=== PATIENT | female | born 1985 | race Caucasian/White ===

== ENCOUNTER → 2023-03-14 | Outpatient (CLI) | payer OTHER, SELFPAY ==
--- NOTE | 2023-03-14 07:49 | BI_ITS ---
MAMMOGRAPHY - BILATERAL SCREENING REASON FOR EXAM: Female, 38 years old. Routine annual screening examination. PERTINENT HISTORY: Non-contributory. TECHNIQUE: Digital bilateral breast kishan (3D mammographic acquisition) in the CC and MLO projections. 2-D mediolateral oblique (MLO) and craniocaudad (CC) views of both breasts were obtained. CAD: Full Field Digital Mammography with Computer Added Detection was performed. COMPARISON: None. Baseline examination. FINDINGS: Breast Composition: The breasts are extremely dense, which lowers the sensitivity of mammography. There are no dominant masses or suspicious calcifications. No other significant abnormalities are identified. BI/SCRN MAMM (CAD)W/KISHAN BILAT IMPRESSION: Negative screening mammogram. Yearly followup mammogram recommended. (A) ASSESSMENT CATEGORY: BIRADS Category 1: Negative. A letter regarding these results will be sent to the patient by the facility within 30 days. Approximately 10% of breast cancers are not detected by mammography. A normal mammogram should not delay biopsy of a clinically suspicious abnormality. [id number] Electronically Signed: Cb Corona MD at 8:57 EDT ,
== END | disposition home or self-care (01) ==
LOC: OPBI 07:47
PROVIDERS: PCP Family Medicine; Referring Provider Student in an Organized Health Care Education/Training Program; Visit Provider Student in an Organized Health Care Education/Training Program
DX: Z12.31 Encounter for screening mammogram for malignant neoplasm of breast (principal)
CPT/HCPCS: 77063; 77067

== ENCOUNTER 2023-10-11 11:28 | Day surgery (SDC) | payer OTHER, SELFPAY ==
--- NOTE | 2023-10-10 09:14 | HP.PCM.OB_ITS ---
History and Physical Date of Admission: 10/11/23 Pre-Op History and Physical ? HPI: The patient is a 38 year old female presenting for pre-operative visit. She is scheduled for Hysteroscopy D&C w/ myomectomy and Endometrial ablation and lap salpingectomy, for AUB, Submucosal fibroid , desires sterlization on 10/11/23. Procedure discussed along with risks, benefits and complications. Other alternatives discussed for management. Consent form signed? Yes. ? ? PAST MEDICAL HISTORY PAST MEDICAL HISTORY Diagnosis Date ? NEGATIVE MEDICAL HISTORY ? ? ? PAST SURGICAL HISTORY PAST SURGICAL HISTORY Procedure Laterality Date ? NONE ? CURRENT MEDICATIONS Current Outpatient Medications Medication Sig Dispense Refill ? norethindrone (AYGESTIN) 5 mg tablet Take 1 tablet by mouth two times a day. Take one tablet twice daily until bleeding stop then take daily. 60 tablet 1 ? No current facility-administered medications for this visit. ? ? ALLERGIES: Amoxicillin ? PERSONAL HISTORY: SOCIAL HISTORY Social History ? Tobacco Use ? Smoking status: Never ? Smokeless tobacco: Never Vaping Use ? Vaping Use: Never used Substance Use Topics ? Alcohol use: Not Currently ? Drug use: Never ? FAMILY HISTORY: FAMILY HISTORY No family history on file. ? REVIEW OF SYMPTOMS: negative except as noted above PHYSICAL EXAMINATION: ? VITALS: Blood pressure 104/68, weight 132 lb (59.9 kg), last menstrual period 08/08/2023. ? GENERAL: The patient is well nourished, well hydrated in no acute distress. , The patient is oriented to time, place, and person. NECK: full range of motion ? ? IMPRESSION: 38 yo female with fibroid uterus, with AUB and desires sterilization ? PLAN: Hysteroscopy, D&C, Myomectomy with symphion. If cavity not breached then Endometrial ablation. Laparoscopic Bilateral salpingectomy. ? Pt has been counseled on risks/benefits and alternatives of surgery including but not limited to anesthesia, bleeding, infection, injury to pelvic structures including bowel, bladder, ureters and vessels. Pt wishes to proceed with surgery at this time. Pt understands if cavity breached during myomectomy a blation will not be performed. ? Pre and post op instructions reviewed Consent signed. ? I have reviewed and updated past medical and surgical history, medications and allergies Hafsa Blackmon MD
[2023-10-11] VITALS (8 sets, daily range): BP systolic 90–102; BP diastolic 61–71; PULSE 71–87; RESP 16–18; TEMP 36.1–37.1; O2SAT 95–100; BMI 22.4
[2023-10-11] MEDS: Lactated Ringers 1,000 ML 15 ML IV (12:03)
[2023-10-11 12:07] LABS: Hematocrit 43.2 % (37-47); Hemoglobin 13.9 g/dL (12.0-15.0); Mean Corp Hgb Conc 32.2 g/dL (32-36); Mean Corpuscular Hgb 30.5 pg (27.0-32.0); Mean Corpuscular Volume 94.7 fL (81-99); Mean Platelet Vol. 9.5 fl (6.2-12.0); Platelet Count 287 K/mm3 (150-450); RBC Distribution Width SD 45.1 fl (35.1-43.9); Red Blood Count 4.56 M/mm3 (4.2-5.4); White Blood Count 7.5 K/mm3 (4.4-11.0)
--- OUTSIDE RECORDS SUMMARY | 2023-10-11 12:08 | XMS RPT_ITS | CCD ---
Author Name Unknown Address [address] [place] [address] Organization [facility] Care Team Providers Care Equipment Mechanic Specialist Name Role Phone Cristóbal Schmidt DO Primary Care Provider SIGRID KEYES Attending Unavailable CRISTÓBAL SCHMIDT Primary Care Unavailable Cristóbal Schmidt DO Primary Care Provider GARO, ELIZABETH Referring Unavailable FRACASSO, CRISTÓBAL E Primary Care Unavailable GARO, ELIZABETH Referring Unavailable FRACASSO, CRISTÓBAL E Primary Care Unavailable GARO, ELIZABETH Attending Unavailable FRACASSO, CRISTÓBAL E Primary Care Unavailable FRACASSO, CRISTÓBAL E Primary Care Unavailable FRACASSO, CRISTÓBAL E Primary Care Unavailable FRACASSO, CRISTÓBAL E Primary Care Unavailable DUNCANT FAVIO BARKER Attending Unavail able FRACASSO, CRISTÓBAL E Primary Care Unavailable FRACASSO, CRISTÓBAL E Primary Care Unavailable NEMICHAELT FAVIO BARKER Attending Unavail able FRACASSO, CRISTÓBAL E Primary Care Unavailable GARO, ELIZABETH Attending Unavailable GARO, ELIZABETH Referring Unavailable GARO, ELIZABETH Attending Unavailable ANUJSSO, CRISTÓBAL E Primary Care Unavailable Allergies Allergy Classification Reported Allergen(s) Allergy Type Date of Onset Reaction(s) Facility (8 sources) Amoxicillin; Translations: [AMOXICILLIN] Drug Allergy 02-20-2018 Rash [facility] Medications Current Medications Medication Drug Class(es) Dates Sig (Normalized) Sig (Original) erythromycin 0.005 mg/mg ophthalmic ointment (1 source) Macrolide, Macrolide Antimicrobial Start: 03-09-2023 End: 03-16-2023 erythromycin (ROMYCIN) 5 mg/gram (0.5 %) ophthalmic ointment Indications: Infection Use 1 application in the right eye four times daily for 7 days. 3.5 g 0 03/09/2023 03/16/2023 Active Completed/Discontinued Medications Medication Drug Class(es) Dates Sig (Normalized) Sig (Original) Ethinyl Estradiol / norgestimate (5 sources) Progestin, Estrogen Start: 11-22-2017 End: 07-25-2023 take 1 tablet by mouth once daily norgestimate 0.25 mg-ethinyl estradiol 35 mcg (SPRINTEC, ORTHO-CYCLEN) 0.25-35 mg-mcg per tablet Take 1 tablet by mouth once daily. 0 11/22/2017 07/25/2023 Discontinued (Other) Problems Active Problems Problem Classification Problem Date Documented Date Episodic/Chronic Contraceptive and procreative management (1 source) Patient encounter status; Translations: [Encounter for removal of intrauterine contraceptive device] 08-20-2023 Episodic Genitourinary symptoms and ill-defined conditions (3 sources) Dysuria; Translations: [Dysuria] Onset: 10-25-2022 Episodic Menstrual disorders (3 sources) Irregular periods; Translations: [Irregular menstruation, unspecified] Onset: 07-31-2023 07-25-2023 Chronic Other infections; including parasitic (1 source) Disorder due to infection; Translations: [Unspecified infectious disease] Episodic Other skin disorders (1 source) Eruption; Translations: [Rash and other nonspecific skin eruption] Episodic Viral infection (2 sources) Herpesviral infection, unspecified; Translations: [Herpesviral infection, unspecified] Onset: 10-25-2022 Episodic Past or Other Problems Problem Classification Problem Date Documented Da te Episodic/Chronic Abdominal pain (4 sources) Epigastric pain; Translations: [Epigastric pain] Onset: 12-01-2007 12-01-2007 Episodic Results Test Name Value Interpretation Reference Range Facil ity Vital Signs Date Time Vital Sign Value Performing Clinician Slime kelly 08-20-2023 09:50-0500 Body weight 58.51 kg Elizabeth Wyman APRN.CNP Work Phone: [facility] 08-20-2023 09:50-0500 Diastolic blood pressure 78 mm[Hg] Elizabeth Wyman APRN.CNP Work Phone: [facility] 08-20-2023 09:50-0500 Systolic blood pressure 110 mm[Hg] Elizabeth Wyman APRN.FIRE SAFETY INSPECTOR Work Phone: [facility] 07-25-2023 11:24-0400 Body weight 57.15 kg Elizabeth [place] J2EE SOFTWARE ENGINEER.FIRE SAFETY INSPECTOR Work Phone: [facility] 07-25-2023 11:24-0400 Diastolic blood pressure 60 mm[Hg] Elizabeth [place] J2EE SOFTWARE ENGINEER.FIRE SAFETY INSPECTOR Work Phone: [facility] 07-25-2023 11:24-0400 Systolic blood pressure 98 mm[Hg] Elizabeth [place] J2EE SOFTWARE ENGINEER.FIRE SAFETY INSPECTOR Work Phone: [facility] 03-09-2023 09:11-0400 Body temperature 97 [degF] Fifi Ortiz APRN.FIRE SAFETY INSPECTOR Work Phone: [facility] 03-09-2023 09:11-0400 Body weight 56.97 kg Fifi Ortiz APRN.FIRE SAFETY INSPECTOR Work Phone: [facility] 03-09-2023 09:11-0400 Diastolic blood pressure 62 mm[Hg] Fifi Ortiz APRN.FIRE SAFETY INSPECTOR Work Phone: [facility] 03-09-2023 09:11-0400 Heart rate 92 /min Fifi Ortiz APRN.FIRE SAFETY INSPECTOR Work Phone: [facility] 03-09-2023 09:11-0400 Respiratory rate 18 /min Fifi Ortiz APRN.FIRE SAFETY INSPECTOR Work Phone: [facility] 03-09-2023 09:11-0400 SaO2% (BldA) [Mass fraction] 100 % Fifi Ortiz APRN.FIRE SAFETY INSPECTOR Work Phone: [facility] 03-09-2023 09:11-0400 Systolic blood pressure 98 mm[Hg] Fifi Ortiz APRN.FIRE SAFETY INSPECTOR Work Phone: [facility] 02-12-2023 08:02-0400 Body temperature 98.2 [degF] Wendy Baez J2EE SOFTWARE ENGINEER.FIRE SAFETY INSPECTOR Work Phone: [facility] 02-12-2023 08:02-0400 Body weight 57.34 kg Wendy Nestor J2EE SOFTWARE ENGINEER.FIRE SAFETY INSPECTOR Work Phone: [facility] 02-12-2023 08:02-0400 Diastolic blood pressure 68 mm[Hg] Wendy Nestor J2EE SOFTWARE ENGINEER.FIRE SAFETY INSPECTOR Work Phone: [facility] 02-12-2023 08:02-0400 Heart rate 89 /min Wendy Nestor J2EE SOFTWARE ENGINEER.FIRE SAFETY INSPECTOR Work Phone: [facility] 02-12-2023 08:02-0400 Respiratory rate 18 /min Wendy Nestor J2EE SOFTWARE ENGINEER.FIRE SAFETY INSPECTOR Work Phone: [facility] 02-12-2023 08:02-0400 SaO2% (BldA) [Mass fraction] 100 % Wendy Nesotr J2EE SOFTWARE ENGINEER.FIRE SAFETY INSPECTOR Work Phone: [facility] 02-12-2023 08:02-0400 Systolic blood pressure 122 mm[Hg] Wendy Nestor J2EE SOFTWARE ENGINEER.FIRE SAFETY INSPECTOR Work Phone: [facility] 08-10-2022 12:56-0500 Body temperature 98.29 [degF] Jeana Athy PA-C Work Phone: [facility] 08-10-2022 12:56-0500 Body weight 58.88 kg Jeana Athy PA-C Work Phone: [facility] 08-10-2022 12:56-0500 Diastolic blood pressure 78 mm[Hg] Jeana Athy PA-C Work Phone: [facility] 08-10-2022 12:56-0500 Heart rate 91 /min Jeana Athy PA-C Work Phone: [facility] 08-10-2022 12:56-0500 Respiratory rate 18 /min Jeana Athy PA-C Work Phone: [facility] 08-10-2022 12:56-0500 SaO2% (BldA) [Mass fraction] 96 % Jeana Athy PA-C Work Phone: [facility] 08-10-2022 12:56-0500 Systolic blood pressure 110 mm[Hg] Jeana Athy PA-C Work Phone: [facility] Encounters Encounter Date Encounter Type Care Provider Facility Start: 10-04-2023 End: 10-04-2023 ambulatory FAVIO FAINALUIZAAdrian LUCERO Facility:[facility] Start: 10-02-2023 End: 10-02-2023 ambulatory CRISTÓBAL CONROYELIZABETHCHERYLE Facility:[facility] Start: 08-20-2023 End: 08-20-2023 ambulatory CRISTÓBAL SCHMIDT Facility:[facility] Start: 08-20-2023 End: 08-20-2023 Patient encounter procedure Elizabeth Garo J2EE SOFTWARE ENGINEER.FIRE SAFETY INSPECTOR Work Phone: OB/Gynecology Procedures Date Procedure Procedure Detail Performing Clinician Start: 07-31-2023 Us transvaginal Elizabeth analf J2EE SOFTWARE ENGINEER.FIRE SAFETY INSPECTOR Work Phone: Start: 08-10-2022 Urnls dip stick/tabl et rgnt auto w/o microscopy Jeana Mujica PA-C Work Phone: Plan of Treatment Date Care Activity Detail Author Start: 03-19-2024 Mammography Mammogram Screening [facility] Start: 07-25-2023 End: 10-24-2023 Iron and Iron binding capacity panel - Serum or Plasma [facility] Work Phone: Payers Date Payer Category Payer Unknown [facility] FLAVIA [employer] INSURED [id number] 2021-Present [phone] [address] [place] [address] PPO [id number] 2021 Unknown [id number] Social History Date Type Detail Facility Start: 08-10-2022 Tobacco smoking stat us NHIS Never smoked tobacco [facility] Start: 08-10-2022 Tobacco use and exposure Smoke less tobacco non-user [facility] Start: 1985 Sex Assigned At Not on file [facility] Start: 07-25-2023 End: 08-13-2023 Alcohol intake Ex-drinker (finding) [facility] Start: 07-25-2023 End: 08-13-2023 History of Social function [facility] Start: 07-25-2023 End: 08-13-2023 Tobacco use panel [facility] National Score (1-10 0), lower number is lower risk 75 [facility] Clinical Notes 12-01-2007 to 10-02-2023 Elizabeth Wyman APRN.FIRE SAFETY INSPECTOR - 08/20/2023 9:35 AM Anna Avila RDMS - 07/31/2023 11:30 AM Elizabeth Riddle APRN.QUEENIE - 07/25/2023 11:23 AM EDTFifi Ortiz APRN.FIRE SAFETY INSPECTOR - 03/09/2023 9:20 AM EDT Note Date & Type Note Facility 10-02-2023 Note HNO ID: [id number] Author: Favio De Luna MD Service: ? Author Type: Physician Type: Progress Notes Filed: 10/02/2023 9:07 AM Note Text: Roopa Hutchinson is a 38 year old female who presents for discussion regarding surgical intervention for AUB. Pt reports Irregular bleeding started a few months ago- bleeding twice per month heavy. Pt tried ocps many years ago- didn't like how she felt. Recently tried IUD- had it taken out just a couple of weeks later due to pain and bloating. Pt now on Aygestin- doing well - having spotting. Pt has one child age 14, does not desire future children. Pt offers no other concerns. 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 Social History Tobacco Use Smoking status: Never Smokeless tobacco: Never Vaping Use Vaping Use: Never used Substance Use Topics Alcohol use: Not Currently Drug use: Never Current Outpatient Medications Medication Sig norethindrone (AYGESTIN) 5 mg tablet Take 1 tablet by mouth once daily. No current facility-administered medications for this visit. Allergies As of Date: 10/02/2023 Allergen Noted Reaction AMOXICILLIN 02/20/2018 Rash Fully Assessed 08/20/2023 REVIEW OF SYSTEMS Abdomen: no pain Expanded ROS: GENERAL: Negative for fever Allergies and current medication updated:Yes EXAM: BP 118/64 Wt 134 lb (60.8kg) LMP 08/08/2023 GENERAL: pleasant, female in no apparent distress HEENT: Normocephalic and atraumatic NECK: full range of motion DERMATOLOGY: Normal and without lesions NEURO: alert and oriented x3,exam grossly non-focal EXTREMITIES: normal ASSESSMENT AND PLAN: Encounter Diagnosis ICD-10-CM 1. Abnormal uterine bleeding (AUB) N93.9 2. Intramural and submucous leiomyoma of uterus D25.1 D25.0 3. Sterilization consult Z30.09 4. Discussed options with patient- reviewed ultrasound report and labs- possible submucosal fibroid - small. Discussed hysteroscopy, DANDC with possible myomectomy- so long as cavity not breached can perform endometrial ablation if desired. Salpingectomy reviewed at time of procedure. 5. Discussed increasing Aygestin to BID to TID until bleeding stops then back to once daily. Medical Decision Making: Problems: Low: Acute, uncomplicated illness or injury Data: Unique test result(s) reviewed: 3+ Risk: Moderate: Drug management and Decision on minor surgery w/ risk factors Medical Decision Making Level: 4 - Moderate Favio Dubois MD [facility] 08-20-2023 Note HNO ID: [id number] Author: Elizabeth yWman APRN.FIRE SAFETY INSPECTOR Service: ? Author Type: Nurse Practitioner Type: Progress Notes Filed: 08/20/2023 12:40 PM Note Text: Roopa presents for removal of IUD due to pain, bloating. UNIVERSAL PROTOCOL / SAFETY CHECKLIST Procedure to be Performed: Mirena removal Sign In: A Moment of CARE was completed. Personnel directly involved with the procedure wore the appropriate PPE (Personal Protective Equipment). Patient/Surrogate Stated/Verified: PATIENT VERIFIED(optional for EMERGENT procedures): Patient name, Date of , Relevant allergies, and The intended procedure Time Out Communication: Intended patient and procedure match the source documents. Consent documented and matches the intended procedure. Sign Out: SIGN OUT (optional for EMERGENT procedures): No specimen collected. No instruments, equipment or retained foreign bodies applicable. Post-procedure follow-up management communicated and Plan of Care Visit completed when applicable. Dorota Dellafave [employer] PROCEDURE: Speculum placed in vagina, IUD string visualized and grasped with ring forceps. ASSESSMENT/PLAN: IUD removed without difficulty, intact, and patient tolerated procedure well. Aygestin 5 mg daily until consult appt Elizabeth Wyman APRN.CNP [facility] 08-20-2023 History of Presen t illness Narrative Roopa presents for removal of IUD due to pain, bloating. UNIVERSAL PROTOCOL / SAFETY CHECKLIST Procedure to be Performed: Mirena removal Sign In: A Moment of CARE was completed. Personnel directly involved with the procedure wore the appropriate PPE (Personal Protective Equipment). Patient/Surrogate Stated/Verified: PATIENT VERIFIED(optional for EMERGENT procedures): Patient name, Date of , Relevant allergies, and The intended procedure Time Out Communication: Intended patient and procedure match the source documents. Consent documented and matches the intended procedure. Sign Out: SIGN OUT (optional for EMERGENT procedures): No specimen collected. No instruments, equipment or retained foreign bodies applicable. Post-procedure follow-up management communicated and Plan of Care Visit completed when applicable. Dorota Dellafave [employer] PROCEDURE: Speculum placed in vagina, IUD string visualized and grasped with ring forceps. ASSESSMENT/PLAN: IUD removed without difficulty, intact, and patient tolerated procedure well. Aygestin 5 mg daily until consult appt Elizabeth Wyman APRN.QUEENIE documented in this encounter [facility] 08-13-2023 Note HNO ID: [id number] Author: Elizabeth Wyman APRN.CNP Service: ? Author Type: Nurse Practitioner Type: Progress Notes Filed: 08/13/2023 10:01 AM Note Text: Plant Technician offered: Patient declines. Roopa presents today for IUD insertion for dysmenorrhea. Patient's last menstrual period was 08/08/2023 (approximate). GC/chlamydia: Not done: no risk factors and/or patient declines screening test: negative Side effects including irregular bleeding were discussed with the patient. The patient understands that it should be removed in 8 years or sooner if the patient desires a . IUD source: office provided IUD lot #: [id number] Exp date: 05/2025 UNIVERSAL PROTOCOL / SAFETY CHECKLIST Procedure to be Performed: Mirena IUD Insertion Sign In: A Moment of CARE was completed. Personnel directly involved with the procedure wore the appropriate PPE (Personal Protective Equipment). Patient/Surrogate Stated/Verified: PATIENT VERIFIED(optional for EMERGENT procedures): Patient name, Date of , Relevant allergies, and The intended procedure Time Out Communication: Intended patient and procedure match the source documents. Consent documented and matches the intended procedure. Sign Out: SIGN OUT (optional for EMERGENT procedures): No specimen collected. All instruments, equipment, possible retained foreign bodies accounted for. Post-procedure follow-up management communicated and Plan of Care Visit completed when applicable. The cervix was prepped with betadine. The uterus sounded to 8 cm and the uterus is Anteverted.. Using sterile technique, the Mirena IUD was inserted without difficulty and the string was cut to 1cm from the external os of the cervix. Patient tolerated procedure well. PLAN: Patient was advised to observe for signs and symptoms of infection including but not limited to fever, malodorous vaginal discharge and/or pain. The patient was told to check the string monthly for accurate placement. Bleeding expectations were reviewed. Follow up for next annual exam or sooner as needed. Elizabeth Wyman APRN.[facility] 07-31-2023 Note HNO ID: [id number] Author: Anna Cooper RDMS Service: ? Author Type: Brazer Helper Induction Type: Progress Notes Filed: 07/31/2023 4:17 PM Note Text: Radiology Service Progress Note PATIENT NAME: Roopa Hutchinson DATE OF SERVICE: July 31, 2023 TIME: 4:17 PM PATIENT IDENTITY VERIFICATION COMPLETED USING TWO (2) IDENTIFIERS: Name and Date of confirmed by patient verbally. FALL SCREENING: Has the patient had 2 falls in the last year or 1 fall with injury or currently using an Ambulatory Assistive Device (Walker, Cane, Wheelchair, Crutches, etc.)? No PATIENT GENDER DATA: Female. status: : No status: NO. PATIENT RELEVANT IMPLANT DATA REVIEWED: Not Applicable RADIOLOGY DEPARTMENT: Ultrasound PERIPHERAL IV DATA: Not applicable SIGNED BY: Anna Cooper RDMS RVT July 31, 2023 4:17 PM [facility] 07-31-2023 History of Presen t illness Narrative Radiology Service Progress Note PATIENT NAME: Roopa Hutchinson DATE OF SERVICE: July 31, 2023 TIME: 4:17 PM PATIENT IDENTITY VERIFICATION COMPLETED USING TWO (2) IDENTIFIERS: Name and Date of confirmed by patient verbally. FALL SCREENING: Has the patient had 2 falls in the last year or 1 fall with injury or currently using an Ambulatory Assistive Device (Walker, Cane, Wheelchair, Crutches, etc.)? No PATIENT GENDER DATA: Female. status: : No status: NO. PATIENT RELEVANT IMPLANT DATA REVIEWED: Not Applicable RADIOLOGY DEPARTMENT: Ultrasound PERIPHERAL IV DATA: Not applicable SIGNED BY: Anna Cooper RDMS RVT July 31, 2023 4:17 PM documented in this encounter [facility] 07-25-2023 Note HNO ID: [id number] Author: Elizabeth Wyman APRN.FIRE SAFETY INSPECTOR Service: ? Author Type: Nurse Practitioner Type: Progress Notes Filed: 07/25/2023 11:59 AM Note Text: Roopa Hutchinson is a 38 year old female who presents for problem visit irregular bleeding for 3 months. HPI: pt states that she is having a period about every 2 weeks with flow lasting 5, with heavy bleeding. This started about 3 months ago. Otherwise periods were pretty regular prior to this. Changing a pad every 2 hours on heavy day. Lots of cramping, takes Ibuprofen in needed. 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 No pertinent family history. Social History Tobacco Use Smoking status: Never Smokeless tobacco: Never Vaping Use Vaping Use: Never used Substance Use Topics Alcohol use: Not Currently Drug use: Never Current Outpatient Medications Medication Sig predniSONE (DELTASONE) 10 mg tablet Take 4 tabs po x 3 days, then 3 tabs x 3 days, then 2 tabs x 3 days, then 1 tab x 3 days. (Patient not taking: Reported on 03/09/2023) norgestimate 0.25 mg-ethinyl estradiol 35 mcg (SPRINTEC, ORTHO-CYCLEN) 0.25-35 mg-mcg per tablet Take 1 tablet by mouth once daily. (Patient not taking: Reported on 08/10/2022) fluticasone propionate (FLONASE NASAL) Use in the nose. (Patient not taking: Reported on 08/10/2022) No current facility-administered medications for this visit. Allergies As of Date: 07/25/2023 Allergen Noted Reaction AMOXICILLIN 02/20/2018 Rash Fully Assessed 07/25/2023 REVIEW OF SYSTEMS Abdomen: No bloating, early satiety, indigestion, or increased flatulence. No abdominal pain, nausea, vomiting, diarrhea, or constipation. Bladder: No dysuria, gross hematuria, urinary frequency, urinary urgency, or incontinence. Expanded ROS: N/A Allergies and current medication updated:Yes EXAM: BP 98/60 Wt 126 lb (57.2kg) LMP 07/15/2023 GENERAL: pleasant, female in no apparent distress HEENT: Normocephalic, atraumatic, mucus membranes moist, and no lesions CHEST: Normal inspiratory effort NEURO: alert and oriented x3,exam grossly non-focal EXTREMITIES: normal ASSESSMENT/PLAN: 1. Irregular menstrual cycle - ICD9: 626.4, ICD10: N92.6 (primary diagnosis) - US FEMALE PELVIS TRANSVAG - TSH BLD - CBC + DIFF - IRON + TIBC Discuss Mirena IUD, pt would be interested in this to help control the irregular menses. Will notify patient of test results. lEizabeth Wyman, KYLE.FIRE SAFETY INSPECTOR Medical Decision Making: Problems: Moderate: New problem with uncertain prognosis Data: Unique test(s) ordered: 3+ Risk: Low: Low risk from testing/treatment Medical Decision Making Level: 4 - Moderate [facility] 07-25-2023 History of Presen t illness Narrative Roopa Hutchinson is a 38 year old female who presents for problem visit irregular bleeding for 3 months. HPI: pt states that she is having a period about every 2 weeks with flow lasting 5, with heavy bleeding. This started about 3 months ago. Otherwise periods were pretty regular prior to this. Changing a pad every 2 hours on heavy day. Lots of cramping, takes Ibuprofen in needed. 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 No pertinent family history. Social History Tobacco Use Smoking status: Never Smokeless tobacco: Never Vaping Use Vaping Use: Never used Substance Use Topics Alcohol use: Not Currently Drug use: Never Current Outpatient Medications Medication Sig predniSONE (DELTASONE) 10 mg tablet Take 4 tabs po x 3 days, then 3 tabs x 3 days, then 2 tabs x 3 days, then 1 tab x 3 days. (Patient not taking: Reported on 03/09/2023) norgestimate 0.25 mg-ethinyl estradiol 35 mcg (SPRINTEC, ORTHO-CYCLEN) 0.25-35 mg-mcg per tablet Take 1 tablet by mouth once daily. (Patient not taking: Reported on 08/10/2022) fluticasone propionate (FLONASE NASAL) Use in the nose. (Patient not taking: Reported on 08/10/2022) No current facility-administered medications for this visit. Allergies As of Date: 07/25/2023 Allergen Noted Reaction AMOXICILLIN 02/20/2018 Rash Fully Assessed 07/25/2023 REVIEW OF SYSTEMS Abdomen: No bloating, early satiety, indigestion, or increased flatulence. No abdominal pain, nausea, vomiting, diarrhea, or constipation. Bladder: No dysuria, gross hematuria, urinary frequency, urinary urgency, or incontinence. Expanded ROS: N/A Allergies and current medication updated:Yes EXAM: BP 98/60 Wt 126 lb (57.2kg) LMP 07/15/2023 GENERAL: pleasant, female in no apparent distress HEENT: Normocephalic, atraumatic, mucus membranes moist, and no lesions CHEST: Normal inspiratory effort NEURO: alert and oriented x3,exam grossly non-focal EXTREMITIES: normal ASSESSMENT/PLAN: 1. Irregular menstrual cycle - ICD9: 626.4, ICD10: N92.6 (primary diagnosis) - US FEMALE PELVIS TRANSVAG - TSH BLD - CBC + DIFF - IRON + TIBC Discuss Mirena IUD, pt would be interested in this to help control the irregular menses. Will notify patient of test results. Elizabeth Wyman APRN.CNP Medical Decision Making: Problems: Moderate: New problem with uncertain prognosis Data: Unique test(s) ordered: 3+ Risk: Low: Low risk from testing/treatment Medical Decision Making Level: 4 - Moderate documented in this encounter [facility] 07-12-2023 Note HNO ID: [id number] Author: Dyllan Rausch APRN.CNP Service: ? Author Type: Nurse Practitioner Type: Progress Notes Filed: 07/12/2023 9:10 AM Note Text: Subjective HPI A nontoxic appearing female presents to urgent care with chief complaint of possible UTI. Duration of symptoms 1 days. Associated symptoms dysuria, frequency, and urgency. Did notice some hematuria this morning. Patient has history of UTIs in past with similar signs and symptoms. Patient denies the use of any [id number] medications or home remedies for symptom management. Patient states pain is a 3/10. Patient denies any fevers, flank pain, abdominal pain, nausea, vomiting, vaginal discharge, chance of STDs, chance of , or urological abnormalities. Last menstrual cycle 2 weeks ago. Denies chance of . Is not breast-feeding. Past medical history prescription medication use allergies reviewed. .Patient presents with: Urinary Problem: Started this am, painful urination blood in urine History reviewed. No pertinent past medical history. History reviewed. No pertinent surgical history. ALLERGIES Amoxicillin MEDICATIONS fluticasone propionate (FLONASE NASAL) Use in the nose. (Patient not taking: Reported on 08/10/2022) norgestimate 0.25 mg-ethinyl estradiol 35 mcg (SPRINTEC, ORTHO-CYCLEN) 0.25-35 mg-mcg per tablet Take 1 tablet by mouth once daily. (Patient not taking: Reported on 08/10/2022) predniSONE (DELTASONE) 10 mg tablet Take 4 tabs po x 3 days, then 3 tabs x 3 days, then 2 tabs x 3 days, then 1 tab x 3 days. (Patient not taking: Reported on 03/09/2023) History reviewed. No pertinent family history. Social History Tobacco Use Smoking status: Never Smokeless tobacco: Never Substance Use Topics Drug use: Never BP 103/70 Pulse 77 Temp 36.6 ?C (97.8 ?F) Resp 18 Wt 58.3 kg (128 lb 9.6 oz) LMP 06/29/2023 (Approximate) SpO2 100% Review of Systems Constitutional: Negative for chills, fever and malaise/fatigue. HENT: Negative for congestion, ear discharge, ear pain, sinus pain and sore throat. Eyes: Negative for blurred vision, pain, discharge and redness. Respiratory: Negative for cough, hemoptysis, sputum production, shortness of breath, wheezing and stridor. Cardiovascular: Negative for chest pain. Gastrointestinal: Negative for abdominal pain, diarrhea, nausea and vomiting. Genitourinary: Positive for dysuria, frequency, hematuria and urgency. Negative for flank pain. Musculoskeletal: Negative for myalgias. Skin: Negative for itching and rash. Neurological: Negative for dizziness and headaches. Objective Physical Exam Vitals and nursing note reviewed. Constitutional: General: She is not in acute distress. Appearance: She is not toxic-appearing or diaphoretic. HENT: Head: Normocephalic. Jaw: No trismus. Right Ear: Hearing normal. No decreased hearing noted. No drainage, swelling or tenderness. Tympanic membrane is not perforated, erythematous or bulging. Left Ear: Hearing normal. No decreased hearing noted. No drainage, swelling or tenderness. Tympanic membrane is not perforated, erythematous or bulging. Nose: Nose normal. Mouth/Throat: Pharynx: Uvula midline. No uvula swelling. Tonsils: No tonsillar abscesses. Eyes: Pupils: Pupils are equal, round, and reactive to light. Cardiovascular: Rate and Rhythm: Normal rate and regular rhythm. Pulses: Normal pulses. Pulmonary: Effort: Pulmonary effort is normal. No respiratory distress. Breath sounds: Normal breath sounds. Abdominal: General: Bowel sounds are normal. There is no distension. Palpations: Abdomen is soft. Abdomen is not rigid. Tenderness: There is no abdominal tenderness. There is no right CVA tenderness, left CVA tenderness, guarding or rebound. Negative signs include Padilla's sign and McBurney's sign. Musculoskeletal: General: No tenderness. Cervical back: Normal range of motion. Lymphadenopathy: Head: Right side of head: No submental, submandibular, tonsillar, preauricular, posterior auricular or occipital adenopathy. Left side of head: No submental, submandibular, tonsillar, preauricular, posterior auricular or occipital adenopathy. Cervical: Right cervical: No superficial or posterior cervical adenopathy. Left cervical: No superficial or posterior cervical adenopathy. Skin: General: Skin is warm and dry. Findings: No rash. Neurological: General: No focal deficit present. Mental Status: She is alert and oriented to person, place, and time. ASSESSMENT/PLAN: 1. Hematuria, unspecified type - ICD9: 599.70, ICD10: R31.9 - UA DIP, URINE (POC) - URINE CULTURE Blood and leukocytes noted on urine dip. Treat as acute cystitis. Patient was educated on supportive therapies. Patient will follow up with primary care provider as needed. Patient was instructed to immediately proceed to emergency room for any new, worsening, or symptoms (more content not included)... [facility] 03-09-2023 Note HNO ID: [id number] Author: Fifi Ortiz APRN.FIRE SAFETY INSPECTOR Service: ? Author Type: Nurse Practitioner Type: Progress Notes Filed: 03/09/2023 9:23 AM Note Text: CC: Patient presents with: Eye Problem: R eyelid swollen x last night HPI: Roopa Hutchinson is a 37 year old female who presents to the office with complaint of eye redness and swelling on right upper lid since last night. Symptoms are worsening Associated symptoms includes eye redness and swelling on the right upper lid. Denies vision changes. Treatments tried include nothing so far. with no relief of symptoms. Sick contacts: unknown. History of asthma, frequent episodes of bronchitis, chronic bronchitis, bronchiectasis or COPD: No Smoker: No Seasonal/environmental allergies: No The ROS is otherwise negative. The patient's pmh, medications, allergies, and past visits are reviewed. PHYSICAL EXAM: BP 98/62 Pulse 92 Temp 36.1 ?C (97 ?F) Resp 18 Wt 57 kg (125 lb 9.6 oz) LMP 02/11/2023 (Exact Date) SpO2 100% General appearance: alert, cooperative, pleasant, in no acute distress Head: Normocephalic Eyes: EOM's intact, conjunctiva pink and moist, no icterus, sclera white, non-injected. Right eyelid is slightly edematous and erythematous. No past medical history on file. No past surgical history on file. ALLERGIES Amoxicillin MEDICATIONS erythromycin (ROMYCIN) 5 mg/gram (0.5 %) ophthalmic ointment Use 1 application in the right eye four times daily for 7 days. predniSONE (DELTASONE) 10 mg tablet Take 4 tabs po x 3 days, then 3 tabs x 3 days, then 2 tabs x 3 days, then 1 tab x 3 days. (Patient not taking: Reported on 03/09/2023) norgestimate 0.25 mg-ethinyl estradiol 35 mcg (SPRINTEC, ORTHO-CYCLEN) 0.25-35 mg-mcg per tablet Take 1 tablet by mouth once daily. (Patient not taking: Reported on 08/10/2022) fluticasone propionate (FLONASE NASAL) Use in the nose. (Patient not taking: Reported on 08/10/2022) No family history on file. Social History Tobacco Use Smoking status: Never Smokeless tobacco: Never Substance Use Topics Drug use: Never ASSESSMENT/PLAN: 1. Infection - ICD9: 136.9, ICD10: B99.9 - ERYTHROMYCIN 5 MG/GRAM (0.5 %) EYE OINTMENT Prescription instructions reviewed with patient as applicable. Potential red flag symptoms discussed with the patient. Reviewed appropriate action plan to take if red flag symptoms occur. Patient agreeable to treatment plan. Fifi Ortiz APRN.[facility] 03-09-2023 History of Presen t illness Narrative CC: Patient presents with: Eye Problem: R eyelid swollen x last night HPI: Roopa Hutchinson is a 37 year old female who presents to the office with complaint of eye redness and swelling on right upper lid since last night. Symptoms are worsening Associated symptoms includes eye redness and swelling on the right upper lid. Denies vision changes. Treatments tried include nothing so far. with no relief of symptoms. Sick contacts: unknown. History of asthma, frequent episodes of bronchitis, chronic bronchitis, bronchiectasis or COPD: No Smoker: No Seasonal/environmental allergies: No The ROS is otherwise negative. The patient's pmh, medications, allergies, and past visits are reviewed. PHYSICAL EXAM: BP 98/62 Pulse 92 Temp 36.1 C (97 F) Resp 18 Wt 57 kg (125 lb 9.6 oz) LMP 02/11/2023 (Exact Date) SpO2 100% General appearance: alert, cooperative, pleasant, in no acute distress Head: Normocephalic Eyes: EOM's intact, conjunctiva pink and moist, no icterus, sclera white, non-injected. Right eyelid is slightly edematous and erythematous. No past medical history on file. No past surgical history on file. ALLERGIES Amoxicillin MEDICATIONS erythromycin (ROMYCIN) 5 mg/gram (0.5 %) ophthalmic ointment Use 1 application in the right eye four times daily for 7 days. predniSONE (DELTASONE) 10 mg tablet Take 4 tabs po x 3 days, then 3 tabs x 3 days, then 2 tabs x 3 days, then 1 tab x 3 days. (Patient not taking: Reported on 03/09/2023) norgestimate 0.25 mg-ethinyl estradiol 35 mcg (SPRINTEC, ORTHO-CYCLEN) 0.25-35 mg-mcg per tablet Take 1 tablet by mouth once daily. (Patient not taking: Reported on 08/10/2022) fluticasone propionate (FLONASE NASAL) Use in the nose. (Patient not taking: Reported on 08/10/2022) No family history on file. Social History Tobacco Use Smoking status: Never Smokeless tobacco: Never Substance Use Topics Drug use: Never ASSESSMENT/PLAN: 1. Infection - ICD9: 136.9, ICD10: B99.9 - ERYTHROMYCIN 5 MG/GRAM (0.5 %) EYE OINTMENT Prescription instructions reviewed with patient as applicable. Potential red flag symptoms discussed with the patient. Reviewed appropriate action plan to take if red flag symptoms occur. Patient agreeable to treatment plan. Fifi Ortiz APRN.QUEENIE documented in this encounter [facility] 02-12-2023 Note HNO ID: [id number] Author: Wendy Baez APRN.QUEENIE Service: ? Author Type: Nurse Practitioner Type: Progress Notes Filed: 02/12/2023 8:18 AM Note Text: Subjective The history is provided by the patient. No speech language pathologist was used. HPI Roopa Hutchinson is a 37 year old female who presents today for CC of itchy rash on face and arms The patients reports recently having been in the [place]. The rash is discribed as Erythema, Vesicles, pruritic Past treatments she has used benadryl and triamcinolone without relief. Does the patient have a personal history of: Seasonal allergies: no Recent travel: no Recent infections: no Beginning a new medication: no Symptoms are triggered by: heat Other symtoms include: no systemic symptoms. BP 122/68 Pulse 89 Temp 36.8 ?C (98.2 ?F) (Tympanic) Resp 18 Wt 57.3 kg (126 lb 6.4 oz) LMP 02/11/2023 (Exact Date) SpO2 100% Social History Tobacco Use Smoking status: Never Smokeless tobacco: Never Substance Use Topics Drug use: Never No past medical history on file. I have confirmed and edited as necessary, the [facility] Review of Systems Constitutional: Negative for chills and fever. Musculoskeletal: Negative for joint pain and myalgias. Skin: Positive for itching and rash. All other systems reviewed and are negative. Objective Physical Exam Vitals and nursing note reviewed. Pulmonary: Effort: Pulmonary effort is normal. Skin: General: Skin is warm and dry. Comments: linear streaks of erythematous papules with/without pruritic small vesicles of clear fluid on marked areas Neurological: Mental Status: She is alert and oriented to person, place, and time. Psychiatric: Mood and Affect: Affect normal. ASSESSMENT/PLAN: 1. Rash - ICD9: 782.1, ICD10: R21 Continue triamcinolone cream Prednisone taper as ordered Zyrtec/benadryl Follow up with PCP as needed Diagnosis and treatment plan were discussed and questions were answered to the patient's satisfaction. Pt acknowledged understanding of concepts and follow up plan. Specific signs and symptoms that would indicate the need for higher level of care were discussed in detail warranting prompt ER evaluation. Wendy Baez APRN.FIRE SAFETY INSPECTOR [facility] 02-12-2023 Instructions Wendy Baez APRN.QUEENIE - 02/12/2023 8:17 AM EDT Start Triamcinolone 0.1% ointment twice daily for itch Start Benadryl PRN for itch Prednisone taper Keep rash clean and dry. Allow to dry out. documented in this encounter [facility] 02-12-2023 History of Presen t illness Narrative Images from the original note were not included. Subjective The history is provided by the patient. No speech language pathologist was used. HPI Roopa Hutchinson is a 37 year old female who presents today for CC of itchy rash on face and arms The patients reports recently having been in the [place]. The rash is discribed as Erythema, Vesicles, pruritic Past treatments she has used benadryl and triamcinolone without relief. Does the patient have a personal history of: Seasonal allergies: no Recent travel: no Recent infections: no Beginning a new medication: no Symptoms are triggered by: heat Other symtoms include: no systemic symptoms. BP 122/68 Pulse 89 Temp 36.8 C (98.2 F) (Tympanic) Resp 18 Wt 57.3 kg (126 lb 6.4 oz) LMP 02/11/2023 (Exact Date) SpO2 100% Social History Tobacco Use Smoking status: Never Smokeless tobacco: Never Substance Use Topics Drug use: Never No past medical history on file. I have confirmed and edited as necessary, the [facility] Review of Systems Constitutional: Negative for chills and fever. Musculoskeletal: Negative for joint pain and myalgias. Skin: Positive for itching and rash. All other systems reviewed and are negative. Objective Physical Exam Vitals and nursing note reviewed. Pulmonary: Effort: Pulmonary effort is normal. Skin: General: Skin is warm and dry. Comments: linear streaks of erythematous papules with/without pruritic small vesicles of clear fluid on marked areas Neurological: Mental Status: She is alert and oriented to person, place, and time. Psychiatric: Mood and Affect: Affect normal. ASSESSMENT/PLAN: 1. Rash - ICD9: 782.1, ICD10: R21 Continue triamcinolone cream Prednisone taper as ordered Zyrtec/benadryl Follow up with PCP as needed Diagnosis and treatment plan were discussed and questions were answered to the patient's satisfaction. Pt acknowledged understanding of concepts and follow up plan. Specific signs and symptoms that would indicate the need for higher level of care were discussed in detail warranting prompt ER evaluation. Wendy Baez APRN.QUEENIE documented in this encounter [facility] 08-12-2022 Miscellaneous Notes Formattin g of this note might be different from the original. Phone call placed patient advised (see prior provider encounter) Patient verbalized understanding, agreed with plan of care. Irma Hogan LPN ----- Message from Cherri Treviño APRN.QUEENIE sent at 08/12/2022 8:12 AM EST ----- Urine culture did not show clear evidence of infection. She may continue to take antibiotic if it has been helpful. Recommend follow up with PCP to ensure hematuria has resolved. Cherri Treviño CNP documented in this encounter [facility] 08-10-2022 History of Presen t illness Narrative This note was created using [employer]. Subjective Roopa Hutchinson is a 37 year old female. HPI Patient presents with a chief complaint of dysuria over the past 4 to 5 days. She has been on her menstrual cycle during this time as well. Denies back pain or abdominal pain. She cannot tell if the blood in her urine is from her menses or in the urine. She is sexually active. Denies any vaginal itching or discharge. Denies new sexual partners. No fever or vomiting. Denies history of UTI. Review of Systems Constitutional: Negative. HENT: Negative. Respiratory: Negative. Cardiovascular: Negative. Gastrointestinal: Negative. Genitourinary: Positive for dysuria, frequency and hematuria. Negative for pelvic pain and urgency. Musculoskeletal: Negative for back pain. All other systems reviewed and are negative. No past medical history on file. Current Outpatient Medications Medication Sig Dispense Refill norgestimate 0.25 mg-ethinyl estradiol 35 mcg (SPRINTEC, ORTHO-CYCLEN) 0.25-35 mg-mcg per tablet Take 1 tablet by mouth once daily. (Patient not taking: Reported on 08/10/2022) nitrofurantoin monohydrate and macrocrystal (MACROBID) 100 mg capsule Take 1 capsule by mouth twice daily with meals for 5 days. 10 capsule 0 fluticasone propionate (FLONASE NASAL) Use in the nose. (Patient not taking: Reported on 08/10/2022) No current facility-administered medications for this visit. No past surgical history on file. No family history on file. Social History Tobacco Use Smoking status: Never Smokeless tobacco: Never Objective BP 110/78 Pulse 91 Temp 36.8 C (98.3 F) Resp 18 Wt 58.9 kg (129 lb 12.8 oz) LMP 08/05/2022 (Exact Date) SpO2 96% Physical Exam Vitals reviewed. Constitutional: Appearance: Normal appearance. HENT: Head: Normocephalic and atraumatic. Cardiovascular: Rate and Rhythm: Normal rate and regular rhythm. Heart sounds: Normal heart sounds. Pulmonary: Effort: Pulmonary effort is normal. Breath sounds: Normal breath sounds. Abdominal: General: Abdomen is flat. Palpations: Abdomen is soft. Tenderness: There is no right CVA tenderness, left CVA tenderness, guarding or rebound. Musculoskeletal: Cervical back: Neck supple. Skin: General: Skin is warm and dry. Neurological: General: No focal deficit present. Mental Status: She is alert and oriented to person, place, and time. Assessment and Plan ASSESSMENT/PLAN: 1. Dysuria - ICD9: 788.1, ICD10: R30.0 acute - UA positive for izabella esterase, hematuria, and proteinuria - Send urine for culture - Begin treatment with Macrobid 100 mg BID for 5 days - URINE CULTURE Jeana Mujica PA-C documented in this encounter [facility] documented as of this encounter (statuses as of 07/25/2023) [facility] History of Past illness Narrative* Problem Noted Date Diagnosed Date Resolved Date Abdominal pain, epigastric 12/01/2007 1 Overview: ED 11-29-07: CT abd/pelvis negative, WBC 6.3 K, NL LFTs-given Prevacid/Bentyl documented as of this encounter (statuses as of 08/03/2023) [facility] History of Past illness Narrative* Problem Noted Date Diagnosed Date Resolved Date Abdominal pain, epigastric 12/01/2007 1 Overview: ED 11-29-07: CT abd/pelvis negative, WBC 6.3 K, NL LFTs-given Prevacid/Bentyl documented as of this encounter (statuses as of 08/20/2023) [facility] note* Diagnosis D[facility]- [facility] Diagnosis Rash- Primary Rash and other nonspecific skin eruption documented in this encounter [facility] note* Diagnosis Infection- Primary Unspecified infectious and parasitic diseases documented in this encounter [facility] note* Diagnosis Irregular menstrual cycle- Primary [facility] Diagnosis Irregular menstrual cycle [facility] Diagnosis Encounter for IUD removal- Primary Encounter for removal of intrauterine contraceptive device documented in this encounter [facility] for referral (narrative)* Diagnostic Procedure Only (Routine) - Authorized Specialty Diagnoses / Procedures Referred By Luis F t Referred To Contact [facility] Diagnoses Irregular menstrual cycle Procedures US FEMALE PELVIS TRANSVAG US TRANSVAGINAL Elizabeth Wyman APRN.CNP [address] [place] [address] [id number] Referral ID Status Reason Start Date Expiration Date Visits Requested Visits Authorized [id number] Authorized Auto-Generat ed Referral 08/23/2024 1 1 [facility] for referral (narrative)* Diagnostic Procedure Only (Routine) - Closed Specialty Diagnoses / Procedures Referred By Luis F t Referred To Contact [facility] Diagnoses Irregular menstrual cycle Procedures US FEMALE PELVIS TRANSVAG US TRANSVAGINAL Elizabeth Wyman APRN.CNP [address] [place] [address] [place] [address] Referral ID Status Reason Start Date Expiration Date V isits Requested Visits Authorized [id number] Closed Auto-Generate d Referral 07/25/2023 08/23/2024 1 1 [facility] Outpatient Procedure (Routine) - Pending Review Specialty Diagnoses / Procedures Referred By Luis F mayfield Referred To Contact [facility] Diagnoses Encounter for IUD removal Procedures REMOVE INTRAUTERINE DEVICE REMOVE INTRAUTERINE DEVICE Elizabeth Wyman APRN.CNP [address] [place] [address] [facility] [address] [place] [address] Referral ID Status Reason Start Date Expiration Date Visits Requested Visits Authorized [id number] Pending Review Auto-Generat ed Referral 3 08/19/2024 1 1 [facility] Summary Purpose Family History No Family History Records FoundNo Family History Records Found Advance Directives No Advanced Directives Records FoundNo Advanced Directives Records Found Additional Source Comments Source Comments (unrecognize d section and content) In the event this informatio n is protected by the Federal Confidentiality of Alcohol and Drug Abuse Patient Records regulations: The Federal rules restrict any use of the information to criminally investigate or prosecute any alcohol or drug abuse patient.[facility] the event this information is protected by the Federal Confidentiality of Alcohol and Drug Abuse Patient Records regulations: The Federal rules restrict any use of the information to criminally investigate or prosecute any alcohol or drug abuse patient.[facility] the event this information is protected by the Federal Confidentiality of Alcohol and Drug Abuse Patient Records regulations: The Federal rules restrict any use of the information to criminally investigate or prosecute any alcohol or drug abuse patient.[facility] the event this information is protected by the Federal Confidentiality of Alcohol and Drug Abuse Patient Records regulations: The Federal rules restrict any use of the information to criminally investigate or prosecute any alcohol or drug abuse patient.[facility] the event this information is protected by the Federal Confidentiality of Alcohol and Drug Abuse Patient Records regulations: The Federal rules restrict any use of the information to criminally investigate or prosecute any alcohol or drug abuse patient.[facility] the event this information is protected by the Federal Confidentiality of Alcohol and Drug Abuse Patient Records regulations: The Federal rules restrict any use of the information to criminally investigate or prosecute any alcohol or drug abuse patient.[facility] the event this information is protected by the Federal Confidentiality of Alcohol and Drug Abuse Patient Records regulations: The Federal rules restrict any use of the information to criminally investigate or prosecute any alcohol or drug abuse patient.[facility] Reason for Visit (unrecogniz ed section and content) Reason Comments Results Reason Comments Rash Pt reported working outdoors, rash bilateral arms, face , x2 days. Reason Comments Eye Problem R eyelid swollen x l ast night Reason Comments Irregular Menstrual Cycle Last 3 months Reason Comments Radiology US Specialty Diagnoses / Procedures Referred By Luis F mayfield Referred To Contact [facility] IMAGING Diagnoses Irregular menstrual cycle Procedures US FEMALE PELVIS TRANSVAG US TRANSVAGINAL Elizabeth Wyman APRN.QUEENIE [address] [place] [address] [place] [address] Referral ID Status Reason Start Date Expiration Date V isits Requested Visits Authorized [id number] Closed Auto-Generate d Referral 07/25/2023 08/23/2024 1 1 Reason Onset Date Comments IUD Removal 08/20/2023 Specialty Diagnoses / Procedures Referred By Luis F mayfield [facility]oses Encounter for IUD insertion Procedures INSERT INTRAUTERINE DEVICE LEVONORGESTREL IU 52MG 5 YR INSERT INTRAUTERINE DEVICE Elizabeth Wyman APRN.CNP [address] [place] [address] [facility] [address] [place] [address] Referral ID Status Reason Start Date Expiration Date V isits Requested Visits Authorized [id number] Closed Auto-Generate d Referral 08/02/2023 09/29/2023 2 2 Care Teams (unrecognized sec tion and content) Equipment Mechanic Specialist Relationship Specialty Start Date End Date Cristóbal Schmidt DO [address] [place] [address] PCP - General Family Medicine 02/20/18 Equipment Mechanic Specialist Relationship Specialty Start Date End Date Cristóbal Schmidt DO [address] [place] [address] PCP - General Family Medicine 02/20/18 Equipment Mechanic Specialist Relationship Specialty Start Date End Date Cristóbal Schmidt DO [address] [place] [address] PCP - General Family Medicine 02/20/18 Equipment Mechanic Specialist Relationship Specialty Start Date End Date Cristóbal Schmidt DO [address] [place] [address] PCP - General Family Medicine 02/20/18 Equipment Mechanic Specialist Relationship Specialty Start Date End Date Cristóbal Schmidt DO [address] [place] [address] PCP - General Family Medicine 02/20/18 INFORMATION SOURCE (unrecogn ized section and content) DATE CREATED AUTHOR AUTHOR'S ORGANIZ ATION 10/06/2023 [facility] FOR RECORDS PERTAINING TO PATIENTS WHO ARE OR HAVE BEEN ENROLLED IN A CHEMICAL DEPENDENCY/SUBSTANCEABUSE PROGRAM, SOME INFORMATION MAY BE OMITTED. This clinical summary was aggregated from multiple sources. Caution should be exercised in using it in the provision of clinical care. This summary normalizes information from multiple sources, and as a consequence, information in this document may materially change the coding, format and clinical context of patient data. In addition, data may be omitted in some cases. CLINICAL DECISIONS SHOULD BE BASED ON THE PRIMARY CLINICAL RECORDS. [facility]. provides no warranty or guarantee of the accuracy or completeness of information in this document.
[2023-10-11 12:09] LABS: Internal QC Validated? YES +Cl - CLEAR BKGD; Pregnancy, Urine Negative Negative; Record Kit Lot#,Urine Preg 667200
--- NOTE | 2023-10-11 13:05 | DCINST_ITS ---
Discharge Instructions Diet Discharge Diet: No restrictions Activity May resume sexual activity in: 2 weeks Lifting Restrictions: 20-25 lbs Dressing / Incision Call your doctor if your incision/area has: Continuous Slow Oozing, Sudden Increased Bleeding, Increased Pain/ Swelling, Increased Redness, Foul Smelling Discharge and Swelling at the incision site Call your doctor if you observe: Fever of 101 or Higher, Inability to urinate, Inability to have a bowel movement, Using more than 1 pad per hour and Uncontrolled pain Additional Dressing/Incision Instructions:: You have skin glue over your incision sites, do not pick off. You may shower and let the soap and water run over the incision sites and dab dry. Follow Up Care Please Follow Up With: Hafsa Dubois MD When: 1-2 weeks post OP if you need an appointment please call [phone] Test Results: Test results from this visit will be discussed in further detail at your follow- up appointment, if applicable. Discharge Plan Admission Attending Provider: Hafsa Dubois Primary Care Provider: Isaias Garcia Discharge Orders/Prescriptions Prescriptions: No Action norethindrone acetate 5 mg tablet 5 mg PO BID Patient Comments: TAKE 1 TABLET BY MOUTH EVERY DAY Referrals / Follow Up: Cristóbal Mack DO [Non-Staff] - Disposition Disposition (needs filled in before D/C Order can be placed): Home, Self Care
--- NOTE | 2023-10-11 13:20 | EMB_PTH ---
PATHOLOGY RESULTS PATIENT: ROOPA HUTCHINSON LOC: [facility] [place] U#:[id number] AGE/SX: 38/F ROOM: RE10/11/[address]: Dr. Hafsa Blackmon MD : [id number] BED: DIS: 10/11/2023 SPEC #: [id number] RECD: 10/14/23 07:34 STATUS: RUY OLAYINKA #: [id number] EVA: 10/11/23 13:[address]: Hafsa Blackmon DEPT: SURGICAL PATHOLOGY RECD BY: Amanda Jacob ENTERED: 10/14/23 07:34 SP TYPE: ENDOM BX/C AMARA DR: Dr. Isaias Garcia DO Tissues: Endometrium, NOS Fallopian tube Procedures: Surgery Specimen Level II Surgery Specimen Level IV HEADER OPERATION: Laparoscopic bilateral salpingectomy, hysteroscopy, D & C Symphion PRE-OP DIAGNOSIS: Abnormal uterine bleeding, submucosal fibroid, sterilization TISSUE SUBMITTED: A - Endometrial curettings, B - Bilateral fallopian tubes MICROSCOPIC DIAGNOSIS A. Endometrial curettings: Consistent with exogenous hormone effects. Fragments of benign endocervical mucosa with chronic inflammation. B. Bilateral fallopian tubes, salpingectomy: Bilateral fallopian tubes, no pathologic diagnosis. STONE:marisa 10/15/2023 MICROSCOPIC DESCRIPTION Slides are reviewed. GROSS DESCRIPTION A - Received in fixative is one container labeled with the patient's name and designated endometrial curettings. The specimen consists of multiple fragments of hemorrhagic soft tissue that in aggregate measure 5.0 x 3.0 x 0.2 cm. The specimen is totally submitted in two cassettes. B - Received in fixative is one container labeled with the patient's name and designated bilateral fallopian tubes. The specimen consists of bilateral fallopian tubes including fimbrial ends measuring 5.0 cm in length and 0.4 cm in diameter and 4.5 cm in length and 0.5 cm in diameter. The fallopian tubes are not identified as right or left. Sections reveal unremarkable cut surfaces. Family Protection Specialist sections are submitted in two cassettes with each cassette containing one fallopian tube. / STONE:marisa 10/14/23 TC:5 CPT: 31470, 87214 x2
--- NOTE | 2023-10-11 14:12 | OP.PCM_ITS ---
Report of Operation Date of Procedure: 10/11/23 Pre-Operative Diagnosis: AUB, fibroid uterus, Desires sterilization Post-Operative Diagnosis: same Surgery/Procedure Performed:: Hysteroscopy, D&C, Kely Endometrial Ablation, laparoscopic bilateral salpingectomy Description of Surgical Findings:: No submucosal fibroid identfied. Uterus sounded to 11cm Endocervix 5cm. Surgeon: Hafsa Dubois foreign collection clerk: None (QUIRINO Haywood student ) Type of Anesthesia: General and Local Special Medications: 0.5% marcaine Specimen's removed: endometrial curettings, Drains: none Estimated Blood Loss (mL): <5cc Fluids Replaced: 800cc Description of Procedure: After informed consent was obtained patient taken to the operating room she is placed in supine position she is given anesthesia simply self insert she is prepped draped normal sterile fashion. Bladder was drained prior to the start of the procedure. At this time the weighted speculum was placed the posterior fornix of the vagina then a single-tooth tenaculum was used to grasp the anterior lip of the cervix. At this time the uterus was sounded to [id number] the endocervical canal sounded to 5 cm. Next cervix was dila riley in incremental fashion. Once adequate dilatation was achieved the hysteroscope was inserted using normal saline as distention medium. On hysteroscopy there were no gross abnormalities. Both tubal ostia were visualized. At this time sharp curettage was performed which yielded small amount of endometrial tissue. tissue will be sent to pathology for evaluation. At this time the Kely device was opened. The Kely was set at 6 cm. The device was activated. Prior to activation the field test was performed and cavity was intact. The device was then fired and activated for 120 seconds. Once the 120 seconds was completed the device was removed intact and the tenaculum was removed. Good hemostasis was appreciated. Uterine manipulator was placed without difficulty. Legs then placed in parallel with the abdomen the tenaculum and the weighted speculum were removed. 2 towel clamps were placed at level of umbilicus. Marcaine was injected infraumbilical and a small incision was made. The 5 mm trocar was placed under direct visualization. CO2 gas was used to insufflate the intra-abdominal cavity. Upon inspection no gross abnormalities appreciated- the uterus tubes and ovaries appeared to be normal. At this time then the LLQ and RLQ ports were placed First Marcaine was injected and small incision was made a knife and the 5 mm trocars were placed. At this time then tubes were traced back to the fimbriated ends. Enseal was used to coagulate and ligate along mesosalpinx bilaterally until tubes removed completely. Good hemostasis was appreciated. At this time procedure was deemed complete successful. The gas was desufflated on from the intra-abdominal cavity. The trochars were removed. Skin was closed using 4-0 Monocryl in a subcutaneous fashion. Dermabond glue was placed. Instrument lap and needle counts were correct ?2. The uterine manipulator was removed. Vaginal sweep was performed it was negative. There were no complications anticipated normal postoperative course for this patient. Grafts/Implants Used: none Procedure Start Time: 14:30 Procedure Stop Time: 15:00 Complications none Admit VTE Documentation VTE Present on Admission: Yes VTE Mechan Device Prophylaxis: SCD's VTE Pharm Prophylaxis ordered?: No Reason prophylaxis not ordered:: Procedure Not Indicated
[2023-10-11] MEDS: Bupivacaine 0.5% PF 10 ML VIAL (14:41)
== END 2023-10-11 17:25 | disposition home or self-care (01) ==
LOC: SDC 11:33 → AC 11:33
PROVIDERS: PCP Family Medicine; Referring Provider Obstetrics & Gynecology; Visit Provider Obstetrics & Gynecology
PROC: (CPT 58661; principal; 2023-10-11 13:05)
DX: N93.9 Abnormal uterine and vaginal bleeding, unspecified (principal); Z30.2 Encounter for sterilization
CPT/HCPCS: 58563; 58661; 81025; 85027; 88302; 88305; J7120; C1760; J2405